=== PATIENT | male | born 1945 | race Caucasian/White ===

== ENCOUNTER 2021-06-15 12:13 | Observation (INO) ==
[2021-06-15 14:13] LABS: Troponin I 0.03 ng/mL (< 0.04)
[2021-06-15] MEDS ORDERED: Aspirin 325 MG TABLET PO ONE (16:11)
[2021-06-15] MEDS ORDERED: Isovue-370 500 ML BOTTLE IVP ONE (16:12)
[2021-06-15] MEDS ORDERED: Acetaminophen 325 MG TABLET PO PRN (16:20)
[2021-06-15] MEDS ORDERED: Naloxone 0.4 MG/ML INJ IVP PRN (16:20)
[2021-06-15] MEDS ORDERED: Ondansetron 4 MG/2 ML VIAL IVP PRN (16:20)
[2021-06-15 16:54] LABS: Basophils % 0.7 %; Eosinophils # 0.1 K/mcL (0.0-0.6); Eosinophils % 1.2 %; Hematocrit 44.3 % (37.5-50.1); Hemoglobin 15.1 g/dL (12.9-16.9); Immature Granulocytes % 0.2 % (0-4); Lymphocytes % 23.6 %; Mean Corpuscular HGB Conc 34.1 g/dL (31.6-35.5); Mean Corpuscular Hemoglobin 31.7 pg (28.0-33.3); Mean Corpuscular Volume 93.1 fL (83.0-100.0); Mean Platelet Volume 9.5 fL (9.4-12.4); Monocytes # 0.3 K/mcL (0.0-1.3); Monocytes % 7.2 %; Neutrophils # 2.8 K/mcL (1.6-8.9); Platelet Count 157 K/mcL (140-400); Red Blood Count 4.76 M/mcL (4.19-5.50); Red Cell Distribution Width 12.7 % (11.5-14.5); Segmented Neutrophils % 67.1 %; White Blood Count 4.2 K/mcL (4.3-11.1)
[2021-06-15] MEDS ORDERED: Perflutren Lipid Microsphere 1.3 ML in 0.9 % Sodium Chloride 8.7 ML IVP PRN (16:55)
[2021-06-15 17:24] LABS: BUN/Creatinine Ratio 17 (6-26); Blood Urea Nitrogen 18 mg/dL (8-23); Calcium 9.3 mg/dL (8.6-10.3); Carbon Dioxide 22 mEq/L (23-29); Chloride 102 mEq/L (98-107); Glucose 105 mg/dL (70-105); Magnesium 1.8 mg/dL (1.6-2.6); Osmolality,Calculated 286 (280-300); Potassium 4.1 mEq/L (3.5-5.1); Sodium 137 mEq/L (136-145); eGFR For African Americans > 60 (> 60); eGFR For Non-African Americans > 60 (> 60)
[2021-06-15 21:01] LABS: Bilirubin,Urine Negative (Negative); Blood,Urine Negative (Negative); Clarity,Urine Clear (Clear); Color,Urine Light-Yellow (Yellow); Glucose,Urine (UA) Normal (Normal); Ketones,Urine Negative (Negative); Leukocyte Esterase,Urine Negative (Negative); Nitrite,Urine Negative (Negative); PH,Urine 5.5 pH Units (5.0-8.0); Protein,Urine Negative (Neg-Trace); Specific Gravity,Urine > 1.030 (1.010-1.025); Urobilinogen,Urine Normal (Normal)
[2021-06-16 01:55] LABS: Basophils # 0.1 K/mcL (0.0-0.2); Basophils % 1.3 %; Eosinophils # 0.2 K/mcL (0.0-0.6); Eosinophils % 3.5 %; Hematocrit 43.3 % (37.5-50.1); Hemoglobin 14.6 g/dL (12.9-16.9); Immature Granulocytes % 0.2 % (0-4); Lymphocytes # 1.5 K/mcL (0.6-4.6); Lymphocytes % 31.7 %; Mean Corpuscular HGB Conc 33.7 g/dL (31.6-35.5); Mean Corpuscular Hemoglobin 31.5 pg (28.0-33.3); Mean Corpuscular Volume 93.5 fL (83.0-100.0); Mean Platelet Volume 9.3 fL (9.4-12.4); Monocytes # 0.4 K/mcL (0.0-1.3); Monocytes % 8.3 %; Neutrophils # 2.5 K/mcL (1.6-8.9); Platelet Count 155 K/mcL (140-400); Red Blood Count 4.63 M/mcL (4.19-5.50); Red Cell Distribution Width 12.9 % (11.5-14.5); White Blood Count 4.6 K/mcL (4.3-11.1)
[2021-06-16 02:03] LABS: INR 1.1; Prothrombin Time 12.2 Seconds (9.4-12.1)
[2021-06-16 02:12] LABS: BUN/Creatinine Ratio 14 (6-26); Blood Urea Nitrogen 17 mg/dL (8-23); Carbon Dioxide 25 mEq/L (23-29); Chloride 101 mEq/L (98-107); Glucose 130 mg/dL (70-105); Magnesium 1.9 mg/dL (1.6-2.6); Osmolality,Calculated 283 (280-300); Potassium 3.7 mEq/L (3.5-5.1); Sodium 135 mEq/L (136-145); eGFR For African Americans > 60 (> 60); eGFR For Non-African Americans 59 (> 60)
[2021-06-16 02:17] LABS: Cholesterol 199 mg/dL (< 200); HDL Cholesterol 66 mg/dL (40-59); LDL Cholesterol,Calculated 106 mg/dL (< 100); Triglycerides 134 mg/dL (< 150)
[2021-06-16 02:20] LABS: Troponin I < 0.03 ng/mL (< 0.04)
[2021-06-16] MEDS: lisinopriL 5 MG TABLET PO SCH (09:11)
[2021-06-16] MEDS: Aspirin 81 MG TAB.CHEW PO SCH (09:11)
[2021-06-16 10:22] LABS: Estimated Average Glucose 111 mg/dl; Hemoglobin A1C 5.5 %
[2021-06-16 11:31] LABS: Folate > 22.3 ng/mL (3.0-16.0); Vitamin B12 232 pg/mL (250-1100); Vitamin D 25 Hydroxy 33 ng/mL (30-80)
[2021-06-17] MEDS: Aspirin 81 MG TAB.CHEW PO SCH (08:54)
[2021-06-17] MEDS: lisinopriL 5 MG TABLET PO SCH (08:54)
[2021-06-17 10:29] VITALS: BP 119/81; PULSE 62; TEMP 97.5; O2SAT 100
== END 2021-06-17 12:34 | disposition home or self-care (01) ==
LOC: EMEROOARM 12:13 → 3BNU 12:13 → SUATTDRO 16:35 → 3BNU 18:40
PROVIDERS: ADMIT Pharmacist; ATTEND Registered Nurse